=== PATIENT | female | born 1980 | race African-American/Black ===

== ENCOUNTER 2018-12-19 06:14 | Emergency (ER) | payer MEDICAID ==
[~2018-12-19] VITALS: Ht 172.7 cm; Wt 100.0 kg
[2018-12-19] MEDS ORDERED: SODIUM CHLORIDE 0.9% 1,000 ML IV ONE (06:53)
[2018-12-19] MEDS ORDERED: METOCLOPRAMIDE HCL 10MG/2ML VIAL IV ONE (07:00)
[2018-12-19] MEDS ORDERED: ACETAMINOPHEN 500MG TABLET PO ONE (07:00)
[2018-12-19 07:36] LABS: BASOPHILS % 0.3 % (0.0-2.0); HEMATOCRIT. 34.1 % (36.0-48.0); HEMOGLOBIN. 11.1 g/dL (12.0-16.0); LYMPHOCYTES % 14.5 % (20.0-50.0); MEAN CORPUSCULAR HEMOGLOBIN 27.8 pg (28.0-32.0); MEAN CORPUSCULAR VOLUME 85.1 fL (81.0-99.0); MEAN PLATELET VOLUME 7.4 fl (7.4-10.4); MONOCYTES % 6.9 % (2.0-8.0); NEUTROPHILS % 76.3 % (40.0-76.0); PLATELET 330 x1000/uL (130-400); RED BLOOD CELL COUNT 4.01 mill/uL (4.2-5.4); RED CELL DISTRIBUTION WIDTH 13.9 % (11.6-14.6)
[2018-12-19 07:45] LABS: CHLORIDE 107 mEq/L (98-107)
[2018-12-19 08:13] LABS: B-HCG QUANTITATIVE 12299 mIU/mL (<3)
[2018-12-19 09:16] LABS: CLARITY URINE CLEAR (CLEAR); COLOR URINE YELLOW (YELLOW); KETONES URINE NEGATIVE (NEGATIVE); LEUKOCYTE ESTERASE URINE NEGATIVE (NEGATIVE); NITRITE URINE NEGATIVE (NEGATIVE); OCCULT BLOOD URINE NEGATIVE (NEGATIVE); PROTEIN URINE 1+ (NEGATIVE); SPECIFIC GRAVITY URINE 1.029 (1.005-1.030); UROBILINOGEN URINE 0.2 E.U./dL (0.2-1.0)
[2018-12-19 09:30] LABS: *AMPHETAMINES SCREEN URINE NEGATIVE (NEGATIVE); *BARBITURATES SCREEN URINE NEGATIVE (NEGATIVE); *BENZODIAZEPINES SCREEN URINE NEGATIVE (NEGATIVE); *COCAINE SCREEN URINE NEGATIVE (NEGATIVE); METHADONE URINE SCREEN NEGATIVE (NEGATIVE)
[2018-12-19] MEDS ORDERED: MORPHINE SULFATE 2 MG/ML CPJ (NOT FOR IM USE) IV ONE ×2 (09:30→11:45)
[2018-12-19 09:31] LABS: CANNABINOID URINE SCREEN NEGATIVE (NEGATIVE); OPIATES URINE SCREEN NEGATIVE (NEGATIVE); PHENCYCLIDINE URINE SCREEN NEGATIVE (NEGATIVE)
[2018-12-19] MEDS ORDERED: MORPHINE SULFATE 4 MG/ML CPJ (NOT FOR IM USE) IV ONE (14:00)
[2018-12-19] MEDS ORDERED: CEFTRIAXONE 1 G PREMIX 50 ML IV ONE (14:00)
[2018-12-19 14:49] VITALS: BP 116/66
== END 2018-12-19 15:58 | disposition short-term general hospital (02) ==
LOC: ER 06:14 → EDBEDREQ 06:57 → CANBEDREQ 13:09 → ER 15:58
DX: O34.82 Maternal care for other abnormalities of pelvic organs, second trimester (principal); N83.201 Unspecified ovarian cyst, right side; Z3A.16 16 weeks gestation of pregnancy; Z98.890 Other specified postprocedural states
CPT/HCPCS: 36415; 76805; 80053; 80305; 81003; 84702; 85025; 85610; 86850; 86900; 86901; 96361; 96365; 96375; 96376; 99285; J0696; J2270; J2765; J7030; Z7610

== ENCOUNTER 2024-06-26 09:13 | Emergency (ER) | payer MEDICAID ==
[~2024-06-26] VITALS: Ht 170.2 cm; Wt 225.0 kg
[2024-06-26 09:15] VITALS: BP 124/72; PULSE 75; RESP 18; TEMP 36.8; O2SAT 99
[2024-06-26] MEDS ORDERED: IBUP-2029 MT (10:11)
[2024-06-26] MEDS: KETOROLAC 30MG/ML VIAL IM ONE (10:21)
== END 2024-06-26 10:41 | disposition home or self-care (01) ==
LOC: ER 09:13
DX: S93.401A Sprain of unspecified ligament of right ankle, initial encounter (principal); W01.0XXA Fall on same level from slipping, tripping and stumbling without subsequent striking against object, initial encounter; Y93.01 Activity, walking, marching and hiking; Y92.89 Other specified places as the place of occurrence of the external cause; Y99.8 Other external cause status
CPT/HCPCS: 99284; 73590; 73610; 96372; J1885